=== PATIENT | male | born 1965 | race Caucasian/White ===

== ENCOUNTER 2019-11-21 14:15 | Emergency (ER) | payer MEDICAID, OTHER ==
[~2019-11-21] VITALS: Ht 170.2 cm; Wt 79.4 kg
[2019-11-21 14:23] VITALS: BP 102/65
[2019-11-21] MEDS ORDERED: cefTRIAXone SOD 1,000 MG VL IM ONE (16:15)
== END 2019-11-21 16:43 | disposition home or self-care (01) ==
LOC: ER 14:15
DX: L03.115 Cellulitis of right lower limb (principal)
CPT/HCPCS: 96372; 99283; J0696